=== PATIENT | male | born 1945 | race Caucasian/White ===

== ENCOUNTER 2016-07-16 09:08 | Outpatient (CLI) | payer MEDICARE, OTHER ==
[2012-12-11 17:31] VITALS: BP 118/68
== END 2016-07-16 09:10 ==
LOC: LAB 09:08
PROVIDERS: ATTEND Family Medicine
DX: Z13.1 Encounter for screening for diabetes mellitus (principal); E66.9 Obesity, unspecified
CPT/HCPCS: 36415; 80061; 82947; 84153

== ENCOUNTER 2017-09-03 08:23 | Outpatient (CLI) | payer MEDICARE, OTHER ==
[2012-12-11 17:31] VITALS: BP 118/68
[2017-09-03 08:43] LABS: EOSINOPHILS % 4.3 % (0.0-6.8); MEAN CORPUSCULAR VOLUME 98.2 fl (80.0-100.0); MONOCYTES % 9.1 % (0.0-11.0); NEUTROPHILS # 3.3 # k/uL (1.4-7.7)
[2017-09-03 09:14] LABS: eGFR (African) > 60; eGFR (Non-African) > 60
== END 2017-09-03 08:24 ==
LOC: LAB 08:23
PROVIDERS: ATTEND Family Medicine
DX: I10 Essential (primary) hypertension (principal); N40.1 Benign prostatic hyperplasia with lower urinary tract symptoms; E78.00 Pure hypercholesterolemia, unspecified
CPT/HCPCS: 36415; 80053; 80061; 85025; G0103; 84153

== ENCOUNTER 2017-09-29 11:22 | Outpatient (CLI) | payer MEDICARE, OTHER ==
[2012-12-11 17:31] VITALS: BP 118/68
--- NOTE | 2017-09-29 13:22 | Diagnostic Imaging Report ---
MICAH PADRON [facility] [address] [facility].[address] [id number] Report Submission Date: Sep 29, 2017 12:10:50 PM CDT Patient Study Name: HOLLAND PHILIPPE" Date: Sep 29, 2017 11:30:11 AM CDT Modality Type: DX Gender: M Description: CHEST : 41 Institution: [facility] Physician: MICAH PADRON Examination: PA and lateral chest. History: Evaluate lung sanchez. Cough x 2 days (Hx) Comparison exam: None provided. Findings: PA lateral chest demonstrate a normal cardiac and mediastinal silhouette. Tortuous aorta. No focal infiltrate. No blunting of the costophrenic margins. Osseous structures are appropriate for age. Impression: No acute pulmonary process. Electronically signed on Sep 29, 2017 12:10:50 PM CDT by: Grant DAHL
== END 2017-09-29 11:24 ==
LOC: RAD 11:22
PROVIDERS: ATTEND Family Medicine
DX: R05 Cough (principal)
CPT/HCPCS: 71046

== ENCOUNTER 2017-11-25 10:30 | Outpatient (CLI) | payer MEDICARE, OTHER ==
[2012-12-11 17:31] VITALS: BP 118/68
--- NOTE | 2017-11-26 06:54 | Diagnostic Imaging Report ---
MICAH PADRON [facility] [address] [facility].[address] [address] Report Submission Date: Nov 25, 2017 4:04:05 PM CDT Patient Study Name: HOLLAND PHILIPPE" Date: Nov 25, 2017 10:39:00 AM CDT Modality Type: DX Gender: M Description: LOWER EXTREMITY : 41 Institution: [facility] Physician: MICAH PADRON Examination: Plain film right foot History: PAIN WITH NO KNOWN INJURY (Hx) / ITS.REASON pain at base of right fifth metatarsal (DICOM Hx) Findings: 3 views of the right foot demonstrates osteopenia. Articular degenerative changes. Flattening of the 2nd metatarsal head. No fracture or dislocation. Calcaneal spurs. No soft tissue swelling. No joint effusion. Impression: Osteopenia and degenerative changes. No acute appearing osseous abnormality. Electronically signed on Nov 25, 2017 4:04:05 PM CDT by: Grant DAHL
== END 2017-11-25 10:32 ==
LOC: RAD 10:30
PROVIDERS: ATTEND Family Medicine
DX: M79.671 Pain in right foot (principal)
CPT/HCPCS: 73630